=== PATIENT | female | born 1975 | race Caucasian/White ===

== ENCOUNTER 2018-03-22 19:25 | Emergency (ER) | payer OTHER ==
[~2018-03-22] VITALS: Ht 172.7 cm; Wt 72.6 kg
[~2018-03-22 19:25] MED LIST: AMOXICILLIN500 M1 PO; DUONEB 2.5-0.5 M3 ML INH; MEDROLDOSEPACK PO; NOHOMEMEDICATIONS; PREDNISONE 20 M20 MG PO; TRAMADOL 50 MG50 MG PO; TRIAMCINOLONE A15 G2 TP; VENTOLIN HFA 1818 GM INH
[2018-03-22 19:37] VITALS: BP 123/60
[2018-03-22] MEDS ORDERED: PREDNISONE50 MG PO (20:06)
== END 2018-03-22 20:22 | disposition home or self-care (01) ==
LOC: M.ERS 19:25
DX: T78.49XA Other allergy, initial encounter (principal); X58.XXXA Exposure to other specified factors, initial encounter

== ENCOUNTER 2018-04-18 03:34 | Emergency (ER) | payer OTHER ==
[~2018-04-18] VITALS: Ht 175.3 cm; Wt 72.6 kg
[~2018-04-18 03:34] MED LIST changes: +PREDNISONE50 MG PO
[2018-04-18 03:38] VITALS: BP 143/75
[2018-04-18] MEDS ORDERED: ACCUNEB SO1.25 MG/1 INH (03:43)
[2018-04-18] MEDS ORDERED: IBUPROFEN 800800 M1 PO (03:51)
[2018-04-18] MEDS ORDERED: TRAMADOL 50 MG50 MG PO (03:51)
== END 2018-04-18 04:16 | disposition home or self-care (01) ==
LOC: M.ERS 03:34
DX: M54.5 Low back pain (principal); Z88.5 Allergy status to narcotic agent; Z88.6 Allergy status to analgesic agent

== ENCOUNTER 2018-07-11 22:28 | Emergency (ER) | payer OTHER ==
[~2018-07-11] VITALS: Ht 175.3 cm; Wt 72.6 kg
[~2018-07-11 22:28] MED LIST changes: +ACCUNEB SO1.25 MG/1 INH; +IBUPROFEN 800800 M1 PO
[2018-07-11] MEDS ORDERED: TRIAMCINOLONE A80 G2 TOP (22:52)
[2018-07-11 23:09] VITALS: BP 136/79
== END 2018-07-11 23:09 | disposition home or self-care (01) ==
LOC: M.ERS 22:28
DX: L30.9 Dermatitis, unspecified (principal); R60.9 Edema, unspecified; Z88.5 Allergy status to narcotic agent; Z88.6 Allergy status to analgesic agent

== ENCOUNTER 2020-02-13 17:18 | Emergency (ER) | payer OTHER ==
[~2020-02-13] VITALS: Ht 175.3 cm; Wt 72.6 kg
[~2020-02-13 17:18] MED LIST changes: +TRIAMCINOLONE A80 G2 TOP
[2020-02-13 19:30] VITALS: BP 135/88
== END 2020-02-13 19:30 | disposition home or self-care (01) ==
LOC: M.ERS 17:18
DX: S93.602A Unspecified sprain of left foot, initial encounter (principal); S93.402A Sprain of unspecified ligament of left ankle, initial encounter; Z88.5 Allergy status to narcotic agent; Z88.6 Allergy status to analgesic agent; W22.8XXA Striking against or struck by other objects, initial encounter; Y93.89 Activity, other specified; Y92.89 Other specified places as the place of occurrence of the external cause; Y99.8 Other external cause status

== ENCOUNTER 2021-01-06 11:29 | Emergency (ER) | payer OTHER ==
[~2021-01-06] VITALS: Ht 175.3 cm; Wt 72.6 kg
[2021-01-06] MEDS ORDERED: PREDNISONE 20 M20 M1 PO (12:04)
[2021-01-06 12:13] VITALS: BP 148/86
== END 2021-01-06 12:15 | disposition home or self-care (01) ==
LOC: M.ERS 11:29
DX: M26.601 Right temporomandibular joint disorder, unspecified (principal); F17.210 Nicotine dependence, cigarettes, uncomplicated; Z88.5 Allergy status to narcotic agent; Z88.6 Allergy status to analgesic agent; Z85.528 Personal history of other malignant neoplasm of kidney

== ENCOUNTER 2021-06-14 21:43 | Emergency (ER) | payer OTHER ==
[~2021-06-14] VITALS: Ht 175.3 cm; Wt 72.6 kg
[~2021-06-14 21:43] MED LIST changes: +PREDNISONE 20 M20 M1 PO
[2021-06-14] MEDS ORDERED: PROAIR HFA8.5 GM INH (21:57)
[2021-06-14] MEDS ORDERED: TRAMADOL 50 MG50 MG PO (22:30)
[2021-06-14] MEDS ORDERED: PREDNISONE50 MG PO (22:32)
[2021-06-14 22:49] VITALS: BP 144/67
== END 2021-06-14 22:49 | disposition home or self-care (01) ==
LOC: M.ERS 21:43
DX: R51.9 Headache, unspecified (principal); H92.01 Otalgia, right ear

== ENCOUNTER 2021-06-28 19:19 | Emergency (ER) | payer OTHER ==
[~2021-06-28] VITALS: Ht 172.7 cm; Wt 72.6 kg
[~2021-06-28 19:19] MED LIST changes: +PROAIR HFA8.5 GM INH
[2021-06-28] MEDS ORDERED: TRAMADOL 50 MG50 MG PO (20:00)
[2021-06-28] MEDS ORDERED: AMOXIL 875 MG875 M1 PO (20:13)
[2021-06-28 20:17] VITALS: BP 150/88
== END 2021-06-28 20:17 | disposition home or self-care (01) ==
LOC: M.ERS 19:19
DX: R68.84 Jaw pain (principal); Z79.899 Other long term (current) drug therapy; Z88.6 Allergy status to analgesic agent; Z88.5 Allergy status to narcotic agent